=== PATIENT | female | born 1940 | race Caucasian/White ===

== ENCOUNTER 2017-07-31 08:11 | Emergency (ER) | payer BC ==
[2017-07-31 08:21] VITALS: TEMP 98.5; BMI 30.1
--- NOTE | 2017-07-31 08:44 | PDOC ---
Attending Attestation - HPI HPI: 07/31/17 10:05 77 yo F with PMHx of Diverticulosis, Recurrent nephrolithiasis, Recurrent UTIs (10 years) who presents with dysuria and fever (101). Patient complains of mild suprapubic abdominal pain, pressure like, 8/10 in severity with no associated nausea or vomiting. Patient reports increased urinary frequency and retention. Patient notes she was recently treated for Cystitis with Nitrofurantoin for 90 days and finished her course in May. Since then patient has not been on abx and presents to the ED for further evaluation of her pain. She denies chest pain, headache or dizziness. She denies diarrhea or constipation. She denies hematuria. Allergies: NKA Past surgical history: Appendectomy, Bilateral Hip surgery Social history: None Urology: Nikolay Bravo associate director of development: Pasha Hyde - Physicial Exam PE: 07/31/17 10:05 GENERAL: Awake, alert, and fully oriented, in no acute distress HEAD: No signs of trauma EYES: PERRLA, EOMI, sclera anicteric, conjunctiva clear ENT: Auricles normal inspection, hearing grossly normal, nares patent, oropharynx clear without exudates. Moist mucosa NECK: Normal ROM, supple, no lymphadenopathy, JVD, or masses LUNGS: Breath sounds equal, clear to auscultation bilaterally. No wheezes, and no crackles HEART: Regular rate and rhythm, normal S1 and S2, no murmurs, rubs or gallops ABDOMEN: Soft, nontender, normoactive bowel sounds. No guarding, no rebound. No masses EXTREMITIES: Normal range of motion, no edema. No clubbing or cyanosis. No cords, erythema, or tenderness NEUROLOGICAL: Cranial nerves II through XII grossly intact. Normal speech, normal gait SKIN: Warm, Dry, normal turgor, no rashes or lesions noted. - Medical Decision Making 07/31/17 10:59 Dr. Birch paged via phone answering service Dr. Anderson environmental analyst. Awaiting call back. Documentation prepared by Tere Saunders, acting as medical administrative technician for Talita Ribeiro MD <Tere Saunders - Last Filed: 07/31/17 10:59> - Resident Resident Name: Thomas Mendez - ED Attending Attestation I have performed the following: I have examined & evaluated the patient, The case was reviewed & discussed with the resident, I agree w/resident's findings & plan, Exceptions are as noted - Medical Decision Making Pt with history of recurrent UTIs, following up with Dr. Bravo as an outpatient. Presenting with UTI symptoms, not currently on abx. Unable to reach Dr. Anderson, covering for Dr. Bravo. Will cover with bactrim based on prior cultures, f/u within 1 week. <Talita Ribeiro - Last Filed: 08/01/17 07:22>
--- NOTE | 2017-07-31 09:08 | PDOC ---
History of Present Illness - General Chief Complaint: Urinary Problem Stated Complaint: FEVER Time Seen by Provider: 07/31/17 08:38 - History of Present Illness Initial Comments: 07/31/17 08:54 77 yo F with h/o HTN, diverticulosis, recurrent neprholithiasis, and recurrent UTI's who presents with dsyuria. Pt. reports dysuria for past 48 hours with increased urinary frequency, urgency, and suprapubic discomfort. Endorses fevers and chills of 24 hours with oral temp of 101 yesterday evening. Also complains of mild right sided flank pain. + Diarrhea .Denies N/V, heamturia, chest pain, abdominal pain, blood in stool. SOB, lightheadedness, or dizziness. States that she has recently been treated with cephalexin for 7 days and then nitrofurantoin for the following 90 days for cystitis, with last day of antibiotic in May. Has had extensive workup with imaging, and cystoscopy for investigation of recurrent kidney stones and UTI's with no renal or cystic pathology. urine culture (08/13/15) E.coli resistant to levofloxacin. Denies NSAID use. Urologist Dr. Bravo. Past History - Past Medical History Allergies/Adverse Reactions: Allergies Allergy/AdvReac Type Severity Reaction Status Date / Time No Known Drug Allergies Allergy Verified 07/31/17 08:21 Home Medications: Ambulatory Orders Aspirin [Ecotrin] 81 mg PO DAILY 09/12/15 Cholecalciferol (Vitamin D3) [Vitamin D3] 1 tab PO DAILY 09/12/15 Losartan Potassium 1 tab PO DAILY 09/12/15 [place]-3 Fatty Acids [Fish Oil] 300 mg PO DAILY 09/12/15 Propranolol HCl [Inderal LA] 60 mg PO DAILY 09/12/15 Ranitidine [Zantac -] 150 mg PO BID 09/12/15 Rosuvastatin Calcium [Crestor] 5 mg PO DAILY 09/12/15 Sulfamethoxazole/Trimethoprim [Bactrim Ds -] 1 tab PO BID #14 tablet MDD 2 Pills 07/31/17 Anemia: No Asthma: No Cancer: No Cardiac Disorders: Yes (ASHD CARDIAC ARRHYTHMIA WITH PVC) CVA: No COPD: No CHF: No Dementia: No Diabetes: No GI Disorders: Yes (HIATAL HERNIA, DILATION OF SCHATZKI RING, DIVERTICULOSIS) Disorders: Yes (RECURRENT UTI) HTN: Yes Hypercholesterolemia: Yes Liver Disease: No Seizures: No Thyroid Disease: No Other medical history: OSTEOARTHRITIS. - Surgical History Abdominal Surgery: No Appendectomy: Yes Cardiac Surgery: No Cholecystectomy: No Lung Surgery: No Neurologic Surgery: No Orthopedic Surgery: Yes (MAYCOL HIP REPLACEMENT) - Psycho/Social/Smoking Cessation Hx Anxiety: No Suicidal Ideation: No Smoking History: Never smoked Have you smoked in the past 12 months: No If you are a former smoker, when did you quit?: 40 YRS AGO Hx Alcohol Use: No Drug/Substance Use Hx: No Substance Use Type: None Hx Substance Use Treatment: No Review of Systems - Review of Systems Comments:: 07/31/17 09:18 GENERAL/CONSTITUTIONAL: + fever / chills. No weakness. HEAD, EYES, EARS, NOSE AND THROAT: No change in vision. No ear pain or discharge. No sore throat.- CARDIOVASCULAR: No chest pain or shortness of breath RESPIRATORY: No cough, wheezing, or hemoptysis. GASTROINTESTINAL: + diahrrea. No nausea, vomiting, or constipation. GENITOURINARY: + dysuria, frequency,and change in urination. MUSCULOSKELETAL: No joint or muscle swelling or pain. No neck or back pain. SKIN: No rash NEUROLOGIC: No headache, vertigo, loss of consciousness, or change in strength/ sensation. ENDOCRINE: No increased thirst. No abnormal weight change HEMATOLOGIC/LYMPHATIC: No anemia, easy bleeding, or history of blood clots. ALLERGIC/IMMUNOLOGIC: No hives or skin allergy. *Physical Exam - Vital Signs Last Vital Signs Temp Pulse Resp BP Pulse Ox 98.5 F 79 20 149/96 98 07/31/17 08:17 07/31/17 08:17 07/31/17 08:17 07/31/17 08:17 07/31/17 08:17 - Physical Exam Comments: 07/31/17 09:19 GENERAL: Awake, alert, and fully oriented, in no acute distress HEAD: No signs of trauma, normocephalic, atraumatic EYES: PERRLA, EOMI, sclera anicteric, conjunctiva clear NECK: Normal ROM, supple, no lymphadenopathy, JVD, or masses LUNGS: No distress, speaks full sentences, clear to auscultation bilaterally HEART: Regular rate and rhythm, normal S1 and S2, no murmurs, rubs or gallops, peripheral pulses normal and equal bilaterally. ABDOMEN: + Suprapubic ttp. Soft, nontender, normoactive bowel sounds. No guarding, no rebound. No masses/ No CVA tenderness EXTREMITIES: Normal inspection, Normal range of motion, no edema. No clubbing or cyanosis. SKIN: Warm, Dry, normal turgor, no rashes or lesions noted. Medical Decision Making - Medical Decision Making 07/31/17 09:20 77 yo F with h/o HTN, diverticulosis, recurrent neprholithiasis, and recurrent UTI's who presents with dsyuria. Pt. reports dysuria for past 48 hours with increased urinary frequency, urgency, and surpapubic discomfort. Endorses fevers and chills of 24 hours with oral temp of 101 yesterday evening. Absent hematuria or associated symptoms. + suprapubic tenderness on physical exam. Afebrile and HS. States that she has recently been treated with nitrofurantoin for 90 days for cystitis, with last day of antibiotic in May. Has had extensive workup with imaging, and cystoscopy for investigation of recurrent kidney stones and UTI's with no renal or cystic pathology. urine culture () E.coli resistant to levofloxacin. Denies NSAID use. Low suspicion for neprholithiasis. DDx: Cystitis, pyelonephritis Ed Course: UA Urine Cx 07/31/17 09:49 Urine: 3 + urine blood, nitrite positive, leuk esterase 1 + 07/31/17 11:[address] Haywood office and spoke to clerical secretary for call back D/C pt. on Bactrim 7 days and f/u with Dr. Haywood outpt. *DC/Admit/Observation/Transfer Diagnosis at time of Disposition: Cystitis - Discharge Dispostion Disposition: HOME Condition at time of disposition: Stable Admit: No - Prescriptions Prescriptions: Sulfamethoxazole/Trimethoprim [Bactrim Ds -] 1 tab PO BID #14 tablet MDD 2 Pills - Referrals Referrals: Briana Ba MD [Primary Care Provider] - - Patient Instructions Printed Discharge Instructions: DI for Urinary Tract Infection (UTI) Additional Instructions: Please return to ED if you develop nausea/vomiting, fevers/chills, abdominal pain, blood in urine, or worsening symptoms. Please take antibiotic as prescribed. Please follow up with your urologist in the next two days.
[2017-07-31 09:22] LABS: URINE APPEARANCE CLOUDY; URINE BILIRUBIN NEGATIVE (NEGATIVE); URINE BLOOD 1+ (NEGATIVE); URINE COLOR YELLOW; URINE GLUCOSE (UA) NEGATIVE (NEGATIVE); URINE KETONE NEGATIVE (NEGATIVE); URINE NITRITE POSITIVE (NEGATIVE); URINE PROTEIN NEGATIVE (NEGATIVE); URINE UROBILINOGEN NEGATIVE mg/dL (0.2-1.0)
[2017-07-31 09:29] LABS: URINE LEUK ESTERASE 3+ (NEGATIVE)
[2017-07-31 09:58] LABS: URINE BACTERIA MANY /hpf (NONE SEEN); URINE MUCUS RARE; URINE RBC 5 /hpf (0-3); URINE WBC 865 /hpf (3-5)
[2017-07-31 11:36] VITALS: BP 137/79; PULSE 66
== END 2017-07-31 11:52 | disposition home or self-care (01) ==
LOC: JER 08:11
DX: N30.00 Acute cystitis without hematuria (principal); Z87.442 Personal history of urinary calculi; Z87.440 Personal history of urinary (tract) infections; I10 Essential (primary) hypertension
CPT/HCPCS: 81003; 81015; 87086; 87186; 99282-25

== ENCOUNTER 2018-09-26 06:52 | Day surgery (SDC) | payer BC ==
[2018-09-23 12:00] VITALS: BMI 30.1
[2018-09-26 08:35] VITALS: TEMP 97.8
[2018-09-26 08:56] VITALS: PULSE 51
[2018-09-26 15:12] VITALS: BP 151/78
--- NOTE | 2018-09-27 17:44 | PATH ---
Surgical Pathology Report Patient Name: GUERRERO FRY [facility]. Rec. #: [id number] /Age/Gender: 1940 (Age: 78) / F Account: [id number] Location: [facility]-ENDOSCOPY Taken: 09/26/2018 Received: 09/26/2018 Reported: 09/27/2018 Physicians: Briana Ba M.D. Specimen(s) Received BX TRANSVERSE COLON POLYP Clinical History Screening, adenoma surveillance Postoperative diagnosis: Diverticulosis, colon polyp Final Diagnosis TRANSVERSE COLON, POLYP, BIOPSY: TUBULAR ADENOMA. Electronically Signed Rona Tate M.D. Gross Description Received in formalin, labeled "biopsy polyp transverse colon" is a ludwig, irregular portion of soft tissue measuring 0.1 cm. in greatest dimension. The specimen is submitted in toto in one cassette. /09/26/201809/26/2018
== END 2018-09-26 09:25 | disposition home or self-care (01) ==
LOC: JASU-ENDO 06:52
PROVIDERS: ATTEND Internal Medicine Gastroenterology
PROC: 0DBL8ZX Excision of Transverse Colon, Via Natural or Artificial Opening Endoscopic, Diagnostic (ICD-10-PCS; principal; 2018-09-26 08:00)
DX: Z12.11 Encounter for screening for malignant neoplasm of colon (principal); Z86.010 Personal history of colon polyps; K63.5 Polyp of colon; K57.30 Diverticulosis of large intestine without perforation or abscess without bleeding
CPT/HCPCS: 88305-TC

== ENCOUNTER 2022-07-01 20:14 | Observation (INO) | payer OTHER, MEDICARE ==
[2022-07-01 20:18] VITALS: BMI 25.7
[2022-07-01] MEDS ORDERED: methylPREDNISolone NA SUCC 125 MG/2 ML VIAL IVPB ONE (20:46)
[2022-07-01] MEDS ORDERED: methylPREDNISolone NA SUCC 125 MG/2 ML VIAL ONE (20:46)
[2022-07-01] MEDS ORDERED: FAMOTIDINE 20 MG/50 ML IVPB 20 MG/50 ML MG IVPB ONE ×2 (20:46)
[2022-07-01] MEDS ORDERED: SODIUM CHLORIDE 0.9% 500 ML INFUS.BAG IV ONE ×2 (20:47→22:07)
[2022-07-01 21:38] LABS: BASO % 0.1 % (0-2.0); EOS % 0.4 % (0-4.5); HEMATOCRIT 41.5 % (32.4-45.2); HEMOGLOBIN 14.2 GM/dL (10.7-15.3); LYMPH % 18.2 % (8-40); MCH 31.3 pg (25.7-33.7); MCHC 34.2 g/dl (32.0-36.0); MEAN CELL VOLUME 91.6 fl (80-96); MEAN PLT VOLUME 9.7 fl (7.5-11.1); MONO % 3.6 % (3.8-10.2); NEUT % 77.7 % (42.8-82.8); PLATELET COUNT 270 10^3/uL (134-434); RBC 4.53 M/mm3 (3.60-5.2); RDW 12.4 % (11.6-15.6); WHITE BLOOD COUNT 11.7 K/mm3 (4.0-10.0)
[2022-07-01 21:49] LABS: CALCIUM 9.5 mg/dL (8.5-10.1)
[2022-07-01 21:50] LABS: BLOOD UREA NITROGEN 44.9 mg/dL (7-18)
[2022-07-01 21:54] LABS: BILIRUBIN,TOTAL 1.2 mg/dL (0.2-1); TOT PROT 6.9 g/dl (6.4-8.2)
[2022-07-01 23:29] LABS: N-TERMINAL BNP 1405.2 pg/ml (5-450)
[2022-07-02] MEDS ORDERED: SODIUM CHLORIDE 1,000 ML IV STA (01:08)
[2022-07-02] MEDS: HEPARIN NA (PORCINE) 5,000 UNITS/ML 1ML VIAL SQ SCH ×3 (06:19→21:34)
[2022-07-02 08:38] LABS: HEMATOCRIT 35.2 % (32.4-45.2); HEMOGLOBIN 12.2 GM/dL (10.7-15.3); MCH 31.9 pg (25.7-33.7); MCHC 34.7 g/dl (32.0-36.0); MEAN CELL VOLUME 91.9 fl (80-96); MEAN PLT VOLUME 9.1 fl (7.5-11.1); PLATELET COUNT 201 10^3/uL (134-434); RBC 3.83 M/mm3 (3.60-5.2); RDW 12.4 % (11.6-15.6); WHITE BLOOD COUNT 9.5 K/mm3 (4.0-10.0)
[2022-07-02 09:37] LABS: BILIRUBIN,TOTAL 0.5 mg/dL (0.2-1); BLOOD UREA NITROGEN 45.4 mg/dL (7-18); CALCIUM 8.9 mg/dL (8.5-10.1); CREATININE 1.4 mg/dL (0.55-1.3); MAGNESIUM 2.5 mg/dL (1.8-2.4); PHOSPHOROUS 3.4 mg/dL (2.5-4.9)
[2022-07-02] MEDS: amLODIPine BESYLATE 5 MG TABLET (FP) PO SCH (09:41)
[2022-07-02 09:43] LABS: TOT PROT 5.5 g/dl (6.4-8.2)
[2022-07-02 09:46] LABS: ALBUMIN 3.2 g/dl (3.4-5.0)
[2022-07-02 18:43] VITALS: RESP 18
[2022-07-02] MEDS ORDERED: ROSUVASTATIN CA 5 MG TABLET PO SCH (22:00)
[2022-07-03] MEDS: HEPARIN NA (PORCINE) 5,000 UNITS/ML 1ML VIAL SQ SCH ×2 (06:13→14:28)
[2022-07-03 07:04] LABS: PH,URINE 5.5 (5.0-8.0); URINE APPEARANCE CLEAR; URINE BILIRUBIN NEGATIVE (NEGATIVE); URINE COLOR YELLOW; URINE GLUCOSE (UA) NEGATIVE (NEGATIVE); URINE KETONE NEGATIVE (NEGATIVE); URINE LEUK ESTERASE NEGATIVE (NEGATIVE); URINE NITRITE NEGATIVE (NEGATIVE); URINE PROTEIN NEGATIVE (NEGATIVE); URINE UROBILINOGEN 0.2 mg/dL (0.2-1.0)
[2022-07-03] MEDS: amLODIPine BESYLATE 5 MG TABLET (FP) PO SCH (09:31)
[2022-07-03] MEDS ORDERED: predniSONE 20 MG TABLET (UD) PO SCH (10:00)
[2022-07-03] MEDS ORDERED: hydrOXYzine PAMOATE 25 MG CAPSULE (FP) PO ONE (11:00)
[2022-07-03] MEDS ORDERED: hydrOXYzine PAMOATE 50 MG CAPSULE (FP) PO PRN (12:49)
[2022-07-03] MEDS ORDERED: hydrOXYzine PAMOATE 50 MG CAPSULE (FP) PO ONE (12:57)
[2022-07-03 15:41] VITALS: BP 136/81; PULSE 80; TEMP 98.6
== END 2022-07-03 19:21 | disposition home or self-care (01) ==
LOC: JER 20:14 → JERBED 20:47 → J4S 07-02 03:26
PROVIDERS: ADMIT Hospitalist; ATTEND Internal Medicine
PROC: 3E033GC Introduction of Other Therapeutic Substance into Peripheral Vein, Percutaneous Approach (ICD-10-PCS; principal; 2022-07-01)
PROC: 3E023GC Introduction of Other Therapeutic Substance into Muscle, Percutaneous Approach (ICD-10-PCS; 2022-07-01)
PROC: 3E0337Z Introduction of Electrolytic and Water Balance Substance into Peripheral Vein, Percutaneous Approach (ICD-10-PCS; 2022-07-01)
DX: T78.2XXA Anaphylactic shock, unspecified, initial encounter (principal); N17.9 Acute kidney failure, unspecified; Z88.8 Allergy status to other drugs, medicaments and biological substances
CPT/HCPCS: 36415; 71045-TC-FY; 80053; 81003; 82607; 82746; 83735; 83880; 84100; 84439; 84443; 84484; 85025; 85027; 87086; 93005; 93010; 93971-TC; 96361; 96365; 96372; 96375; 96376; 97116-GP; 97161-GP; 99285-25; C9803-CS; G0378; J1644; U0003; U0005